=== PATIENT | male | born 1950 | race Caucasian/White ===

== ENCOUNTER 2020-08-16 10:27 | Emergency (ER) | payer MEDICARE, SELFPAY ==
--- NOTE | ~2020-08-16 | XR_ITS ---
EXAMINATION: XR knee LT min 4V DATE: 08/16/2020 12:08 INDICATION: Anterior left knee pain and bruising post fall TECHNIQUE: Anteroposterior, oblique, sunrise and crosstable lateral views of the left knee were obtai maxx COMPARISON: None. FINDINGS: Alignment is normal. No fracture. Joint spaces appear normal on nonweightbearing imaging. No joint e ffusion/layering lipohemarthrosis. Anterior infrapatellar soft tissue swelling. Small amount of scatt ered atherosclerotic calcification at the distal thigh and proximal calf.. IMPRESSION: 1. No left knee joint effusion or acute osseous abnormality. Reviewed, dictated and finalized at location A. [facility]
[2020-08-16 11:06] VITALS: BP 120/85; PULSE 85; RESP 16; TEMP 36.1; O2SAT 99
--- NOTE | 2020-08-16 12:28 | ED.LOWEXIN ---
HPI - Extremity Injury (Lower) General Chief Complaint: Extremity Injury, Lower <Getachew Abdul PA-C - Last Filed: 08/16/20 12:35> Stated Complaint: left knee pain <Getachew Abdul PA-C - Last Filed: 08/16/20 12:35> Time Seen by Provider: 08/16/20 11:11 <Getachew Abdul PA-C - Last Filed: 08/16/20 12:35> Source: patient <Getachew Abdul PA-C - Last Filed: 08/16/20 12:35> Mode of arrival: ambulatory <Getachew Abdul PA-C - Last Filed: 08/16/20 12:35> Limitations: no limitations <Getachew Abdul PA-C - Last Filed: 08/16/20 12:35> History of Present Illness HPI Narrative: Patient is a 69-year-old male who presents with anterior left knee pain status post slipping and injuring the knee late last night patient on arrival notes aching pain worse with weightbearing and activity denies other injuries or complaints does not wish for any pain medication at this time <Getachew Abdul PA-C - Last Filed: 08/16/20 12:35> Related Data Allergies/Adverse Reactions: Allergies Allergy/AdvReac Type Severity Reaction Status Date / Time No Known Allergies Allergy Verified 08/16/20 11:06 <Getachew Abdul PA-C - Last Filed: 08/16/20 12:35> Review of Systems Review of Systems: All systems reviewed & are unremarkable except as noted in HPI and below <Getachew Abdul PA-C - Last Filed: 08/16/20 12:35> PMFSH Past Medical History Medical History: Medical History (Updated 08/16/20 @ 12:35 by Getachew Abdul PA-C) Anxiety <Getachew Abdul PA-C - Last Filed: 08/16/20 12:35> Social History Social History: Social History (Updated 08/16/20 @ 12:33 by Getachew Abdul PA-C) Smoking status: Never smoker <Getachew Abdul PA-C - Last Filed: 08/16/20 12:35> Exam Narrative: Exam Narrative: GENERAL: Well-appearing, well-nourished, and in no acute distress. HEAD: Normocephalic, atraumatic. EYES: PERRLA and EOMI. ENT: Nares clear, no rhinorrhea or epistaxis. Mucous membranes moist. CHEST: Clear to auscultation. No respiratory distress. No wheezes rales or rhonchi HEART: Regular rate and rhythm. No murmur heard. Normal peripheral pulses. EXTREMITIES: Normal range of motion. No edema. Anterior left knee pain minimal to no deformity SKIN: Warm, dry, no rash. NEURO: No focal deficits. Alert and oriented x3. Neurovascularly intact PSYCH: Normal mood and affect. <Getachew Abdul PA-C - Last Filed: 08/16/20 12:35> Course Course Emergency Course: Patient in the room aware of case findings treatment plan diagnosis agreeing to follow-up with primary care or specialty services felt appropriate for outpatient reevaluation <BIJU Mathis Last Filed: 08/16/20 12:35> Vital Signs Vital signs: Vital Signs Temperature 36.1 C L 08/16/20 11:06 Pulse Rate 85 08/16/20 11:06 Respiratory Rate 16 08/16/20 11:06 Blood Pressure 120/85 08/16/20 11:06 Pulse Oximetry 99 08/16/20 11:06 Temperature 36.1 C L 08/16/20 11:06 Pulse Rate 85 08/16/20 11:06 Respiratory Rate 16 08/16/20 11:06 Blood Pressure 120/85 08/16/20 11:06 Pulse Oximetry 99 08/16/20 11:06 <BIJU Mathis Last Filed: 08/16/20 12:35> Vital Signs Temperature 36.1 C L 08/16/20 11:06 Pulse Rate 85 08/16/20 11:06 Respiratory Rate 16 08/16/20 11:06 Blood Pressure 120/85 08/16/20 11:06 Pulse Oximetry 99 08/16/20 11:06 Temperature 36.1 C L 08/16/20 11:06 Pulse Rate 85 08/16/20 11:06 Respiratory Rate 16 08/16/20 11:06 Blood Pressure 120/85 08/16/20 11:06 Pulse Oximetry 99 08/16/20 11:06 <Tiffany Bianchi MD - Last Filed: 08/16/20 13:55> MDM - Extremity Injury (Lower) MDM Narrative Medical decision making narrative: Patients injury or pain is consistent with musculoskeletal etiology. No signs of neurological or vascular compromise on exam. Compartments and tisues are soft without signs of compartme
== END 2020-08-16 12:50 | disposition home or self-care (01) ==
PROVIDERS: Emergency Provider Emergency Medicine; PCP Internal Medicine
DX: S89.92XA Unspecified injury of left lower leg, initial encounter (principal); W00.0XXA Fall on same level due to ice and snow, initial encounter
CPT/HCPCS: 73564; 99283

== ENCOUNTER 2020-10-25 11:00 | Outpatient (CLI) | payer MEDICARE, SELFPAY | END 2020-10-25 11:01 | disposition home or self-care (01) | LOC: ANHCOVIDVC 11:00 | PROVIDERS: PCP Internal Medicine | DX: Z23 Encounter for immunization (principal) | CPT/HCPCS: 0001A; 91300 ==

== ENCOUNTER 2020-11-15 11:00 | Outpatient (CLI) | payer MEDICARE, SELFPAY | END 2020-11-15 11:01 | disposition home or self-care (01) | LOC: ANHCOVIDVC 11:00 | PROVIDERS: PCP Internal Medicine | DX: Z23 Encounter for immunization (principal) | CPT/HCPCS: 0002A; 91300 ==